=== PATIENT | male | born 1975 | race Caucasian/White ===

== ENCOUNTER 2019-08-26 15:04 | Emergency (ER) | payer OTHER ==
[~2019-08-26] VITALS: Ht 170.2 cm; Wt 77.1 kg
[2019-08-26] MEDS ORDERED: Bactrim Ds Tab1 EACH PO (15:53)
== END 2019-08-26 15:59 | disposition home or self-care (01) ==
LOC: ER 15:04
DX: A49.02 Methicillin resistant Staphylococcus aureus infection, unspecified site (principal)
CPT/HCPCS: 99283

== ENCOUNTER 2020-03-06 13:05 | Emergency (ER) | payer OTHER ==
[~2020-03-06] VITALS: Ht 170.2 cm; Wt 77.1 kg
[~2020-03-06 13:05] MED LIST: Bactrim Ds Tab1 EACH PO
== END 2020-03-06 16:35 | disposition home or self-care (01) ==
LOC: ER 13:05
DX: S02.2XXA Fracture of nasal bones, initial encounter for closed fracture (principal); Z88.8 Allergy status to other drugs, medicaments and biological substances; W26.8XXA Contact with other sharp object(s), not elsewhere classified, initial encounter
CPT/HCPCS: 70450; 70486; 71046; 72125; 93005; 93010; 99284-25

== ENCOUNTER 2023-01-01 12:17 | Day surgery (SDC) | payer OTHER | END 2023-01-01 13:00 | disposition home or self-care (01) | LOC: ORSCSDS 12:17 | DX: R19.4 Change in bowel habit (principal) | CPT/HCPCS: J2704; J7120 ==

== ENCOUNTER 2023-02-19 08:05 | Day surgery (SDC) | payer OTHER ==
[~2023-02-19] VITALS: Ht 170.2 cm; Wt 97.9 kg
[2023-02-19] MEDS ORDERED: BACL20 (08:43)
[2023-02-19] MEDS ORDERED: ARIP30 (08:43)
[2023-02-19] MEDS ORDERED: MIRT30 (08:44)
[2023-02-19] MEDS ORDERED: KEPPRA100 MG/1 M (08:44)
[2023-02-19] MEDS ORDERED: IBUP200 (08:44)
[2023-02-19] MEDS ORDERED: PRAZ2 (08:44)
[2023-02-19] MEDS ORDERED: Budeprion Xl300 MG (08:44)
[2023-02-19] MEDS ORDERED: ALBU90OI (08:44)
[2023-02-19 10:52] VITALS: BP 99/70
== END 2023-02-19 10:51 | disposition home or self-care (01) ==
LOC: ORSCSDS 08:05
PROVIDERS: Internal Medicine Gastroenterology
PROC: 0DJD8ZZ Inspection of Lower Intestinal Tract, Via Natural or Artificial Opening Endoscopic (ICD-10-PCS; principal; 2023-02-19 09:15)
DX: R19.4 Change in bowel habit (principal); R15.0 Incomplete defecation; K64.8 Other hemorrhoids; F17.210 Nicotine dependence, cigarettes, uncomplicated; Z79.899 Other long term (current) drug therapy
CPT/HCPCS: J2001; J2704; J7120